=== PATIENT | male | born 1980 | race Caucasian/White ===

== ENCOUNTER 2022-05-31 23:49 | Emergency (ER) | payer BC ==
[2022-06-01 01:56] VITALS: BP 125/84; PULSE 84
== END 2022-06-01 01:56 | disposition home or self-care (01) ==
LOC: MW.ED 23:49
DX: S99.922A Unspecified injury of left foot, initial encounter (principal); W18.40XA Slipping, tripping and stumbling without falling, unspecified, initial encounter
CPT/HCPCS: 73630-26-LT; 73630-LT; 99283